=== PATIENT | male | born 1960 | race Caucasian/White ===

== ENCOUNTER 2024-03-18 07:54 | Inpatient (IN) | payer MEDICARE, MEDICAID ==
[~2024-03-18] VITALS: Ht 170.2 cm; Wt 66.3 kg
[2024-03-18 08:26] LABS: BASOPHILS % (AUTO) 0.9 % (0.0-2.0); EOSINOPHILS % (AUTO) 3.5 % (1.0-6.0); HEMATOCRIT 43.9 % (41-53); HEMOGLOBIN 15.2 g/dL (13.5-17.5); LYMPHOCYTES # (AUTO) 1.1 K/uL (1.0-4.8); LYMPHOCYTES % (AUTO) 13.6 % (22.0-44.0); MEAN CORPUSCULAR HEMOGLOBIN 29.5 pg (26.0-34.0); MEAN CORPUSCULAR HGB CONC 34.6 G/dL (31.0-37.0); MEAN CORPUSCULAR VOLUME 85 fL (80-100); MONOCYTES # (AUTO) 0.5 K/uL (0.1-1.0); NEUTROPHILS # (AUTO) 6.2 K/uL (1.8-7.7); PLATELET COUNT (AUTO) 197 K/uL (150-450); RED BLOOD CELL COUNT(AUTO) 5.15 MIL/uL (4.50-5.90); RED CELL DISTRIBUTION WIDTH 14.2 % (11.5-14.5); WHITE BLOOD COUNT (AUTO) 8.1 K/uL (4.5-11.0)
[2024-03-18 08:37] LABS: CREATININE 1.79 mg/dL (0.60-1.30); POTASSIUM 4.4 mmol/L (3.5-5.1)
[2024-03-18 08:38] LABS: APPEARANCE,URINE CLEAR (CLEAR); BILIRUBIN,URINE NEGATIVE (NEGATIVE); COLOR,URINE LIGHT YELLOW (YELLOW); GLUCOSE, URINE (UA) >=1000 mg/dL (NEGATIVE); LEUKOCYTE ESTERASE ,URINE NEGATIVE (NEGATIVE); NITRATE,URINE NEGATIVE (NEGATIVE); OCCULT BLOOD,URINE SMALL (NEGATIVE); PH,URINE 6.5 (5.0-8.0); PROTEIN,URINE 300-600,SEE CONFIRM mg/dL (NEGATIVE); UROBILINOGEN,URINE <=1.0 mg/dL (<=1.0)
[2024-03-18 08:45] LABS: ALCOHOL, URINE DRUG SCREEN NEGATIVE (NEGATIVE); AMPHET/METH SCREEN,URINE NEGATIVE (NEGATIVE); BARBITURATE SCREEN, URINE NEGATIVE (NEGATIVE); BENZODIAZEPINES SCREEN,URINE NEGATIVE (NEGATIVE); CANNABINOID SCREEN,URINE NEGATIVE (NEGATIVE); COCAINE SCREEN,URINE NEGATIVE (NEGATIVE); METHADONE SCREEN, URINE NEGATIVE (NEGATIVE); OPIATE SCREEN,URINE NEGATIVE (NEGATIVE); PHENCYCLIDINE SCREEN,URINE NEGATIVE (NEGATIVE)
[2024-03-18 08:46] LABS: TROPONIN I-HIGH SENSITIVITY 8 ng/L (<76)
[2024-03-18 08:47] LABS: COVID AG,FIA SOURCE NASAL SWAB
[2024-03-18 09:07] LABS: PH,URINE DRUG SCREEN 6.5 (5.0-8.0)
[2024-03-18 09:13] LABS: SARS-COV2 (COVID) ANTIGEN,FIA Negative (Negative)
[2024-03-18 09:27] LABS: BACTERIA,URINE None Seen /HPF (None Seen); SULFOSALICYLIC ACID,URINE 3+ (Negative); WBC,URINE None Seen /HPF (0-5)
[2024-03-18] MEDS ORDERED: LOSA-381 PO (14:19)
[2024-03-18] MEDS ORDERED: CARV6 PO (14:19)
[2024-03-18] MEDS ORDERED: SITA50 PO (14:19)
[2024-03-18] MEDS ORDERED: OMEP20 PO (14:19)
[2024-03-18] MEDS ORDERED: AMLO-258 PO (14:19)
[2024-03-18] MEDS ORDERED: ATOR40TA28 PO (14:19)
[2024-03-18 17:18] VITALS: BP 173/99; PULSE 81; RESP 18; TEMP 98; O2SAT 100
[2024-03-18] MEDS ORDERED: INFLUENZA VIRUS VACCINE TVS (6MO+) 2024-25/PF 45 MCG/0.5 ML SYRINGE IM. ONE (18:30)
[2024-03-18] MEDS: AmLODIPine BESYLATE 10 MG TABLET PO ONE (19:03)
[2024-03-18 21:47] VITALS: BP 120/78; PULSE 83; RESP 18; TEMP 97.1; O2SAT 99
[2024-03-18] MEDS: SitaGLIPtin PHOSPHATE 50 MG TABLET PO ONE (21:54)
[2024-03-18] MEDS: LOSARTAN POTASSIUM 25 MG TABLET PO ONE (21:55)
[2024-03-18] MEDS: ZOLPIDEM TARTRATE 10 MG TABLET PO PRN (21:55)
[2024-03-18] MEDS: CARVEDILOL 6.25 MG TABLET PO ONE (21:55)
[2024-03-18] MEDS: ATORVASTATIN CALCIUM 40 MG TABLET PO SCH (21:56)
[2024-03-19] MEDS ORDERED: PETROLATUM,WHITE 28 GM JELLY TP PRN (00:30)
[2024-03-19] MEDS ORDERED: ACETAMINOPHEN 325 MG TABLET PO PRN (00:30)
[2024-03-19] MEDS ORDERED: LOPERAMIDE HCL 2 MG CAPSULE PO PRN (00:30)
[2024-03-19] MEDS ORDERED: OMEPRAZOLE 20 MG CAPSULE PO PRN (00:30)
[2024-03-19] MEDS ORDERED: BACITRACIN 28 GM OINTMENT TP PRN (00:30)
[2024-03-19] MEDS ORDERED: CloNIDine HCL 0.1 MG TABLET PO PRN (00:30)
[2024-03-19] MEDS ORDERED: IBUPROFEN 600 MG TABLET PO PRN (00:30)
[2024-03-19] MEDS ORDERED: ALBUTEROL SULFATE HFA 90 MCG/PUFF 8 GM INHALER IH PRN (00:30)
[2024-03-19] MEDS ORDERED: DOCUSATE SODIUM 100 MG CAPSULE PO PRN (00:30)
[2024-03-19] MEDS ORDERED: ONDANSETRON 4 MG TABLET PO PRN (00:30)
[2024-03-19] MEDS ORDERED: MAG HYDROX/ALUMINUM HYD/SIMETH ES 30 ML SUSPENSION UDCUP PO PRN (00:30)
[2024-03-19] MEDS ORDERED: BENZOCAINE/MENTHOL LOZENGE PO PRN (00:30)
[2024-03-19] MEDS ORDERED: DEXTROSE 50%-WATER 25 GM/50 ML SYRINGE IVP PRN (00:30)
[2024-03-19] MEDS ORDERED: MAGNESIUM HYDROXIDE SUSPENSION 30 ML UDCUP PO PRN (00:30)
[2024-03-19 07:01] LABS: GLUCOMETER DEV NAME(LOC) 3E.I 2; GLUCOSE,POINT OF CARE 278 MG/DL (70-110)
[2024-03-19 07:41] LABS: CHOL/HDL RATIO 3.2 (4.2-7.3)
[2024-03-19 08:30] VITALS: BP 157/77; PULSE 66; RESP 18; TEMP 97.5; O2SAT 99
[2024-03-19] MEDS ORDERED: SitaGLIPtin PHOSPHATE 50 MG TABLET PO SCH (09:00)
[2024-03-19] MEDS: CARVEDILOL 6.25 MG TABLET PO SCH (11:55)
[2024-03-19] MEDS: SitaGLIPtin PHOSPHATE 50 MG TABLET PO SCH (11:55)
[2024-03-19] MEDS: LOSARTAN POTASSIUM 25 MG TABLET PO SCH (11:56)
[2024-03-19] MEDS: AmLODIPine BESYLATE 10 MG TABLET PO SCH (11:57)
[2024-03-19] MEDS: CITALOPRAM HYDROBROMIDE 20 MG TABLET PO SCH (11:57)
[2024-03-19 17:01] LABS: GLUCOMETER DEV NAME(LOC) 3E.I 2; GLUCOSE,POINT OF CARE 429 MG/DL (70-110)
[2024-03-19] MEDS: INSULIN LISPRO 100 UNITS/ML SQ PRN ×2 (17:40→18:18)
[2024-03-19] MEDS: INSULIN GLARGINE,HUM.REC.ANLOG 100 UNITS/ML SQ SCH (21:29)
[2024-03-19] MEDS: LORazepam 2 MG TABLET PO PRN (21:29)
[2024-03-19] MEDS: HALOPERIDOL 5 MG TABLET PO PRN (21:29)
[2024-03-19 21:31] LABS: GLUCOMETER DEV NAME(LOC) 3E.I 2; GLUCOSE,POINT OF CARE 211 MG/DL (70-110)
[2024-03-19 22:14] VITALS: BP 124/72; PULSE 73; RESP 18; TEMP 97.8; O2SAT 98
[2024-03-20 06:36] LABS: GLUCOMETER DEV NAME(LOC) 3E.I 2; GLUCOSE,POINT OF CARE 132 MG/DL (70-110)
[2024-03-20 06:37] LABS: CALCIUM, TOTAL 8.4 mg/dL (8.8-10.5); CREATININE 2.53 mg/dL (0.60-1.30); POTASSIUM 4.2 mmol/L (3.5-5.1)
[2024-03-20] MEDS: ASPIRIN 81 MG DR TABLET PO SCH (09:01)
[2024-03-20 10:20] VITALS: BP 168/84; PULSE 73; RESP 18; TEMP 98.2; O2SAT 100
[2024-03-20 11:45] LABS: GLUCOMETER DEV NAME(LOC) 3E.I 2; GLUCOSE,POINT OF CARE 327 MG/DL (70-110)
[2024-03-20 17:01] LABS: GLUCOMETER DEV NAME(LOC) 3E.I 2; GLUCOSE,POINT OF CARE 222 MG/DL (70-110)
[2024-03-20 20:16] LABS: GLUCOMETER DEV NAME(LOC) 3E.I 2; GLUCOSE,POINT OF CARE 290 MG/DL (70-110)
[2024-03-20 22:27] VITALS: BP 133/56; PULSE 77; RESP 18; TEMP 98.5; O2SAT 99
[2024-03-21 05:41] LABS: GLUCOMETER DEV NAME(LOC) 3E.I 2; GLUCOSE,POINT OF CARE 246 MG/DL (70-110)
[2024-03-21 08:53] VITALS: BP 154/82; PULSE 74; RESP 17; TEMP 97; O2SAT 96
[2024-03-21 11:36] LABS: GLUCOMETER DEV NAME(LOC) 3E.I 2; GLUCOSE,POINT OF CARE 330 MG/DL (70-110)
[2024-03-21 17:21] LABS: GLUCOMETER DEV NAME(LOC) 3E.I 2; GLUCOSE,POINT OF CARE 207 MG/DL (70-110)
[2024-03-21 20:39] VITALS: BP 149/84; PULSE 70; RESP 19; TEMP 97.5; O2SAT 95
[2024-03-21 22:46] LABS: GLUCOMETER DEV NAME(LOC) 3EX.2; GLUCOSE,POINT OF CARE 243 MG/DL (70-110)
[2024-03-22 05:56] LABS: GLUCOMETER DEV NAME(LOC) 3E.I 2; GLUCOSE,POINT OF CARE 157 MG/DL (70-110)
[2024-03-22 08:58] VITALS: BP 152/78; PULSE 70; RESP 18; TEMP 97.7; O2SAT 99
[2024-03-22 11:36] LABS: GLUCOMETER DEV NAME(LOC) 3E.I 2; GLUCOSE,POINT OF CARE 407 MG/DL (70-110)
[2024-03-22 13:41] LABS: GLUCOMETER DEV NAME(LOC) 3E.I 2; GLUCOSE,POINT OF CARE 276 MG/DL (70-110)
[2024-03-22 16:35] LABS: GLUCOMETER DEV NAME(LOC) 3E.I 2; GLUCOSE,POINT OF CARE 298 MG/DL (70-110)
[2024-03-22 20:00] VITALS: BP 170/81; PULSE 73; RESP 18; TEMP 97.9; O2SAT 97
[2024-03-22 21:06] LABS: GLUCOMETER DEV NAME(LOC) 3E.I 2; GLUCOSE,POINT OF CARE 304 MG/DL (70-110)
[2024-03-22] MEDS: INSULIN GLARGINE,HUM.REC.ANLOG 100 UNITS/ML SQ SCH (21:50)
[2024-03-23 06:11] LABS: GLUCOMETER DEV NAME(LOC) 3E.I 2; GLUCOSE,POINT OF CARE 222 MG/DL (70-110)
[2024-03-23 10:02] VITALS: BP 161/80; PULSE 68; RESP 18; TEMP 98.4; O2SAT 98
[2024-03-23 11:36] LABS: GLUCOMETER DEV NAME(LOC) 3E.I 2; GLUCOSE,POINT OF CARE 268 MG/DL (70-110)
[2024-03-23] MEDS ORDERED: CITA-144 PO (11:45)
[2024-03-23] MEDS ORDERED: CARV6 PO (12:04)
[2024-03-23] MEDS ORDERED: ASPI-1444 PO (12:04)
[2024-03-23] MEDS ORDERED: INSLAN SQ (12:04)
[2024-03-23] MEDS ORDERED: ATOR40TA28 PO (12:04)
== END 2024-03-23 18:27 | disposition home or self-care (01) | DRG 881 ==
LOC: EMS 07:54 → 3EI 16:08
PROVIDERS: ADMIT Psychiatry & Neurology Psychiatry; ATTEND Psychiatry & Neurology Psychiatry
DX: F32.9 Major depressive disorder, single episode, unspecified (principal); N18.9 Chronic kidney disease, unspecified; E11.65 Type 2 diabetes mellitus with hyperglycemia; R45.851 Suicidal ideations; Z59.02 Unsheltered homelessness; Z20.822 Contact with and (suspected) exposure to COVID-19; I12.9 Hypertensive chronic kidney disease with stage 1 through stage 4 chronic kidney disease, or unspecified chronic kidney disease; E11.22 Type 2 diabetes mellitus with diabetic chronic kidney disease; G47.00 Insomnia, unspecified; F41.9 Anxiety disorder, unspecified; K59.00 Constipation, unspecified; R07.9 Chest pain, unspecified; E78.5 Hyperlipidemia, unspecified; I25.10 Atherosclerotic heart disease of native coronary artery without angina pectoris; G89.29 Other chronic pain; Z95.5 Presence of coronary angioplasty implant and graft; I25.2 Old myocardial infarction
CPT/HCPCS: 71045; 80048; 80061; 80307; 81001; 81002; 82962; 83036; 83690; 84484; 85025; 93005; 99285; G0480; J1815; 36415-L1; 36415-TC

== ENCOUNTER 2024-03-24 11:32 | Inpatient (IN) | payer OTHER ==
[~2024-03-24] VITALS: Ht 170.2 cm; Wt 71.1 kg
[~2024-03-24 11:32] MED LIST: AMLO-258 PO; ASPI-1444 PO; ATOR40TA28 PO; CARV6 PO; CITA-144 PO; INSLAN SQ; LOSA-381 PO; SITA50 PO
[2024-03-24 11:56] LABS: GLUCOMETER DEV NAME(LOC) ER.7; GLUCOSE,POINT OF CARE 212 MG/DL (70-110)
[2024-03-24 12:23] LABS: EOSINOPHILS % (AUTO) 3.8 % (1.0-6.0); HEMOGLOBIN 14.2 g/dL (13.5-17.5); LYMPHOCYTES % (AUTO) 11.4 % (22.0-44.0); MEAN CORPUSCULAR HGB CONC 33.8 G/dL (31.0-37.0); MEAN CORPUSCULAR VOLUME 86 fL (80-100); MONOCYTES # (AUTO) 0.5 K/uL (0.1-1.0); MONOCYTES % (AUTO) 5.6 % (2.0-9.0); NEUTROPHILS # (AUTO) 6.9 K/uL (1.8-7.7); NEUTROPHILS % (AUTO) 78.2 % (40.0-70.0); PLATELET COUNT (AUTO) 218 K/uL (150-450); RED CELL DISTRIBUTION WIDTH 14.3 % (11.5-14.5); WHITE BLOOD COUNT (AUTO) 8.9 K/uL (4.5-11.0)
[2024-03-24 12:33] LABS: CREATININE 2.03 mg/dL (0.60-1.30)
[2024-03-24 12:36] LABS: POTASSIUM 6.1 mmol/L (3.5-5.1)
[2024-03-24 12:41] LABS: TROPONIN I-HIGH SENSITIVITY 5 ng/L (<76)
[2024-03-24] MEDS: DEXTROSE 50%-WATER 25 GM/50 ML SYRINGE IVP ONE (13:05)
[2024-03-24] MEDS: SODIUM CHLORIDE 0.9% 1,000 ML IV ONE (13:05)
[2024-03-24] MEDS: INSULIN REGULAR, HUMAN 100 UNITS/ML IVP ONE (13:06)
[2024-03-24] MEDS: HEPARIN SODIUM,PORCINE 5,000 UNITS/ML VIAL SQ SCH (15:12)
[2024-03-24] MEDS ORDERED: BISACODYL 10 MG RECTAL RECTAL SUPPOSITORY PR PRN (15:15)
[2024-03-24] MEDS ORDERED: ONDANSETRON HCL 4 MG/2 ML VIAL IVP PRN (15:15)
[2024-03-24] MEDS ORDERED: MORPHINE SULFATE 2 MG/ML SYRINGE IVP PRN (15:15)
[2024-03-24] MEDS ORDERED: ZOLPIDEM TARTRATE 5 MG TABLET PO PRN (15:15)
[2024-03-24] MEDS ORDERED: MAGNESIUM HYDROXIDE SUSPENSION 30 ML UDCUP PO PRN (15:15)
[2024-03-24 15:43] LABS: TROPONIN I-HIGH SENSITIVITY 7 ng/L (<76)
[2024-03-24 18:12] VITALS: BP 162/75; PULSE 69; RESP 20; TEMP 98.1; O2SAT 98
[2024-03-24] MEDS: DOCUSATE SODIUM 100 MG CAPSULE PO SCH (20:28)
[2024-03-24 20:29] VITALS: BP 160/76; PULSE 69; RESP 18; TEMP 98.2; O2SAT 97
[2024-03-24] MEDS ORDERED: DEXTROSE 50%-WATER 25 GM/50 ML SYRINGE IVP PRN (20:30)
[2024-03-24] MEDS: INSULIN GLARGINE,HUM.REC.ANLOG 100 UNITS/ML SQ SCH (20:31)
[2024-03-24] MEDS: ATORVASTATIN CALCIUM 40 MG TABLET PO SCH (20:33)
[2024-03-24] MEDS: INSULIN LISPRO 100 UNITS/ML SQ PRN (21:36)
[2024-03-25] VITALS (16 sets, daily range): BP systolic 122–202; BP diastolic 62–96; PULSE 63–73; RESP 14–18; TEMP 97.8–98.5; O2SAT 73–99
[2024-03-25 06:58] LABS: BASOPHILS % (AUTO) 0.7 % (0.0-2.0); EOSINOPHILS % (AUTO) 4.2 % (1.0-6.0); HEMATOCRIT 35.7 % (41-53); HEMOGLOBIN 12.6 g/dL (13.5-17.5); LYMPHOCYTES # (AUTO) 1.1 K/uL (1.0-4.8); LYMPHOCYTES % (AUTO) 11.7 % (22.0-44.0); MEAN CORPUSCULAR HEMOGLOBIN 29.6 pg (26.0-34.0); MEAN CORPUSCULAR HGB CONC 35.2 G/dL (31.0-37.0); MEAN CORPUSCULAR VOLUME 84 fL (80-100); MONOCYTES # (AUTO) 0.7 K/uL (0.1-1.0); MONOCYTES % (AUTO) 7.4 % (2.0-9.0); NEUTROPHILS # (AUTO) 7.4 K/uL (1.8-7.7); PLATELET COUNT (AUTO) 185 K/uL (150-450); RED BLOOD CELL COUNT(AUTO) 4.25 MIL/uL (4.50-5.90); RED CELL DISTRIBUTION WIDTH 13.9 % (11.5-14.5); WHITE BLOOD COUNT (AUTO) 9.8 K/uL (4.5-11.0)
[2024-03-25 07:01] LABS: GLUCOMETER DEV NAME(LOC) 5S.2D; GLUCOSE,POINT OF CARE 412 MG/DL (70-110)
[2024-03-25 07:01] LABS: GLUCOMETER DEV NAME(LOC) 5S.2D; GLUCOSE,POINT OF CARE 130 MG/DL (70-110)
[2024-03-25 07:01] LABS: GLUCOMETER DEV NAME(LOC) 5S.2D; GLUCOSE,POINT OF CARE 437 MG/DL (70-110)
[2024-03-25 07:19] LABS: TROPONIN I-HIGH SENSITIVITY 8 ng/L (<76)
[2024-03-25 08:06] LABS: CALCIUM, TOTAL 8.6 mg/dL (8.8-10.5); CREATININE 1.94 mg/dL (0.60-1.30); POTASSIUM 4.1 mmol/L (3.5-5.1)
[2024-03-25] MEDS ORDERED: NITROGLYCERIN 0.4 MG SUBLINGUAL TABLET #25 SL PRN (08:30)
[2024-03-25] MEDS: SitaGLIPtin PHOSPHATE 50 MG TABLET PO SCH (08:41)
[2024-03-25] MEDS: PANTOPRAZOLE SODIUM 40 MG DR TABLET PO SCH (08:41)
[2024-03-25] MEDS: CARVEDILOL 6.25 MG TABLET PO SCH (08:41)
[2024-03-25] MEDS: ASPIRIN 81 MG DR TABLET PO SCH (08:42)
[2024-03-25] MEDS: AmLODIPine BESYLATE 10 MG TABLET PO SCH (08:42)
[2024-03-25] MEDS: SODIUM CHLORIDE 0.9% 1,000 ML IV SCH ×2 (08:52→09:16)
[2024-03-25 12:36] LABS: GLUCOMETER DEV NAME(LOC) 5S.1C; GLUCOSE,POINT OF CARE 231 MG/DL (70-110)
[2024-03-25] MEDS ORDERED: LIDOCAINE/PF 1% 30 ML VIAL ONE (14:02)
[2024-03-25] MEDS ORDERED: VERAPAMIL HCL 2.5 MG/ML 2 ML VIAL ONE (14:02)
[2024-03-25] MEDS ORDERED: IOHEXOL 300 MG/ML 100 ML VIAL ONE (14:02)
[2024-03-25] MEDS ORDERED: NITROGLYCERIN 50 MG/D5% WATER 250 ML ONE (14:02)
[2024-03-25] MEDS ORDERED: SODIUM BICARBONATE 50 MEQ/50 ML VIAL ONE (14:02)
[2024-03-25] MEDS ORDERED: HEPARIN SODIUM 1000 UNITS/NS 1,000 ML ONE (14:02)
[2024-03-25 14:27] LABS: CALCIUM, TOTAL 8.4 mg/dL (8.8-10.5); CREATININE 1.77 mg/dL (0.60-1.30); POTASSIUM 4.3 mmol/L (3.5-5.1)
[2024-03-25] MEDS ORDERED: FentaNYL CITRATE PF 100 MCG/2 ML VIAL ONE (15:04)
[2024-03-25] MEDS ORDERED: MIDAZOLAM HCL 2 MG/2 ML VIAL ONE (15:05)
[2024-03-25] MEDS: LIDOCAINE 1% 30 ML/SOD BICARB 8.4% 4 ML SQ ONE (15:33)
[2024-03-25] MEDS: HEPARIN SODIUM,PORCINE 1,000 UNITS/ML 10 ML VIAL IARTER ONE (15:33)
[2024-03-25] MEDS: VERAPAMIL HCL 2.5 MG/ML 2 ML VIAL IARTER ONE (15:33)
[2024-03-25] MEDS: HEPARIN SODIUM 1000 UNITS/NS 1,000 ML IARTER ONE (15:34)
[2024-03-25] MEDS: IOHEXOL 300 MG/ML 100 ML VIAL IARTER ONE (15:34)
[2024-03-25] MEDS: NITROGLYCERIN/D5W 50 MG/250 ML IV BOTTLE IARTER ONE (15:35)
[2024-03-25] MEDS: FentaNYL CITRATE PF 100 MCG/2 ML VIAL IVP ONE (15:35)
[2024-03-25] MEDS: MIDAZOLAM HCL 2 MG/2 ML VIAL IVP ONE (15:35)
[2024-03-25] MEDS: SODIUM CHLORIDE 0.9% 500 ML IV ONE (15:38)
[2024-03-25] MEDS: HydrALAZINE HCL 20 MG/ML VIAL IVP ONE (19:31)
[2024-03-25 20:25] LABS: GLUCOMETER DEV NAME(LOC) 5N.2C; GLUCOSE,POINT OF CARE 157 MG/DL (70-110)
[2024-03-25 20:51] LABS: GLUCOMETER DEV NAME(LOC) 5S.1C; GLUCOSE,POINT OF CARE 302 MG/DL (70-110)
[2024-03-25 21:42] LABS: APPEARANCE,URINE CLEAR (CLEAR); BILIRUBIN,URINE NEGATIVE (NEGATIVE); COLOR,URINE LIGHT YELLOW (YELLOW); GLUCOSE, URINE (UA) 300-500 mg/dL (NEGATIVE); KETONES,URINE NEGATIVE (NEGATIVE); LEUKOCYTE ESTERASE ,URINE NEGATIVE (NEGATIVE); NITRATE,URINE NEGATIVE (NEGATIVE); OCCULT BLOOD,URINE NEGATIVE (NEGATIVE); PH,URINE 6.5 (5.0-8.0); PROTEIN,URINE 100-200,SEE CONFIRM mg/dL (NEGATIVE); SPECIFIC GRAVITIY, URINE 1.017 (1.003-1.030); UROBILINOGEN,URINE <=1.0 mg/dL (<=1.0)
[2024-03-25 21:46] LABS: CREATININE,URINE RANDOM 47.4 mg/dL (30.0-125.0); PROTEIN,URINE RANDOM 180 mg/dL (0-11.9); SODIUM,URINE RANDOM 106 mmol/l (20-110); UREA NITROGEN,URINE RANDOM 385 mg/dL (350-1000)
[2024-03-25 22:09] LABS: RBC,URINE 0-2 /HPF (0-2); WBC,URINE None Seen /HPF (0-5)
[2024-03-25 22:11] LABS: BACTERIA,URINE None Seen /HPF (None Seen); SULFOSALICYLIC ACID,URINE 3+ (Negative)
[2024-03-26 04:30] VITALS: BP 128/60; PULSE 64; RESP 18; TEMP 98.9; O2SAT 98
[2024-03-26 06:57] LABS: TROPONIN I-HIGH SENSITIVITY 14 ng/L (<76)
[2024-03-26 06:59] LABS: BASOPHILS % (AUTO) 0.9 % (0.0-2.0); EOSINOPHILS % (AUTO) 8.3 % (1.0-6.0); HEMATOCRIT 36.5 % (41-53); HEMOGLOBIN 12.3 g/dL (13.5-17.5); LYMPHOCYTES # (AUTO) 1.2 K/uL (1.0-4.8); LYMPHOCYTES % (AUTO) 18.9 % (22.0-44.0); MEAN CORPUSCULAR HEMOGLOBIN 28.8 pg (26.0-34.0); MEAN CORPUSCULAR HGB CONC 33.7 G/dL (31.0-37.0); MEAN CORPUSCULAR VOLUME 86 fL (80-100); MONOCYTES # (AUTO) 0.5 K/uL (0.1-1.0); MONOCYTES % (AUTO) 8.1 % (2.0-9.0); NEUTROPHILS # (AUTO) 4.1 K/uL (1.8-7.7); NEUTROPHILS % (AUTO) 63.8 % (40.0-70.0); PLATELET COUNT (AUTO) 189 K/uL (150-450); RED BLOOD CELL COUNT(AUTO) 4.27 MIL/uL (4.50-5.90); RED CELL DISTRIBUTION WIDTH 13.8 % (11.5-14.5); WHITE BLOOD COUNT (AUTO) 6.4 K/uL (4.5-11.0)
[2024-03-26 07:01] LABS: ALBUMIN 2.8 g/dL (3.4-5.0); BILIRUBIN,TOTAL 0.4 mg/dL (0.1-1.0); CALCIUM, TOTAL 8.2 mg/dL (8.8-10.5); CHOL/HDL RATIO 2.6 (4.2-7.3); CREATININE 1.54 mg/dL (0.60-1.30); POTASSIUM 4.3 mmol/L (3.5-5.1); TOTAL PROTEIN, SERUM 6.1 g/dL (6.4-8.2)
[2024-03-26 07:16] LABS: HEMOGLOBIN A1C 12.5 % (3.8-5.6)
[2024-03-26 07:29] VITALS: BP 150/74; PULSE 67; RESP 17; TEMP 97.5; O2SAT 97
[2024-03-26 11:25] LABS: GLUCOMETER DEV NAME(LOC) 5S.2D; GLUCOSE,POINT OF CARE 233 MG/DL (70-110)
[2024-03-26 11:37] VITALS: BP 151/77; PULSE 70; RESP 17; TEMP 98.4; O2SAT 97
[2024-03-26 11:50] LABS: GLUCOMETER DEV NAME(LOC) 5S.1C; GLUCOSE,POINT OF CARE 130 MG/DL (70-110)
[2024-03-26 16:00] VITALS: BP 147/68; PULSE 63; RESP 17; TEMP 98.2; O2SAT 95
[2024-03-26 17:00] LABS: GLUCOMETER DEV NAME(LOC) 5N.1D; GLUCOSE,POINT OF CARE 222 MG/DL (70-110)
[2024-03-26 20:00] VITALS: BP 158/80; PULSE 70; RESP 18; TEMP 98.2; O2SAT 97
[2024-03-27] VITALS: BP 155/82; PULSE 68; RESP 18; TEMP 97.9; O2SAT 95
[2024-03-27 04:00] VITALS: BP 152/80; PULSE 60; RESP 18; TEMP 98.1; O2SAT 98
[2024-03-27 06:35] LABS: GLUCOMETER DEV NAME(LOC) 5S.1C; GLUCOSE,POINT OF CARE 116 MG/DL (70-110)
[2024-03-27 07:04] LABS: BASOPHILS % (AUTO) 1.1 % (0.0-2.0); EOSINOPHILS % (AUTO) 8.8 % (1.0-6.0); HEMATOCRIT 34.1 % (41-53); HEMOGLOBIN 11.9 g/dL (13.5-17.5); LYMPHOCYTES # (AUTO) 1.7 K/uL (1.0-4.8); LYMPHOCYTES % (AUTO) 26.3 % (22.0-44.0); MEAN CORPUSCULAR HEMOGLOBIN 29.5 pg (26.0-34.0); MEAN CORPUSCULAR HGB CONC 34.9 G/dL (31.0-37.0); MEAN CORPUSCULAR VOLUME 85 fL (80-100); MONOCYTES # (AUTO) 0.6 K/uL (0.1-1.0); MONOCYTES % (AUTO) 8.8 % (2.0-9.0); NEUTROPHILS # (AUTO) 3.6 K/uL (1.8-7.7); PLATELET COUNT (AUTO) 158 K/uL (150-450); RED BLOOD CELL COUNT(AUTO) 4.04 MIL/uL (4.50-5.90); RED CELL DISTRIBUTION WIDTH 13.9 % (11.5-14.5); WHITE BLOOD COUNT (AUTO) 6.5 K/uL (4.5-11.0)
[2024-03-27 07:13] LABS: CALCIUM, TOTAL 8.2 mg/dL (8.8-10.5); CREATININE 1.77 mg/dL (0.60-1.30); MAGNESIUM 1.7 mg/dL (1.80-2.40); PHOSPHORUS 4.1 mg/dL (2.5-4.9); POTASSIUM 4.4 mmol/L (3.5-5.1)
[2024-03-27 08:21] VITALS: BP 160/73; PULSE 62; RESP 19; TEMP 98; O2SAT 97
[2024-03-27] MEDS ORDERED: SITA50 PO (10:35)
[2024-03-27] MEDS ORDERED: AMLO-258 PO (10:35)
[2024-03-27] MEDS ORDERED: ATOR40TA71 PO (10:35)
[2024-03-27] MEDS ORDERED: CARV6 PO (10:35)
[2024-03-27] MEDS ORDERED: ASPI-1444 PO (10:35)
[2024-03-27] MEDS ORDERED: INSLAN SQ (10:35)
[2024-03-27 12:14] VITALS: BP 161/79; PULSE 63; RESP 18; TEMP 98.3; O2SAT 96
[2024-03-27 15:41] VITALS: BP 133/69; PULSE 62; RESP 18; TEMP 98; O2SAT 99
[2024-03-27 18:16] LABS: GLUCOMETER DEV NAME(LOC) 5N.2C; GLUCOSE,POINT OF CARE 218 MG/DL (70-110)
[2024-03-27 20:21] VITALS: BP 159/81; PULSE 62; RESP 18; TEMP 98.1; O2SAT 97
[2024-03-28 02:00] VITALS: BP 154/80; PULSE 61; RESP 18; TEMP 98.1; O2SAT 94
[2024-03-28 05:00] VITALS: BP 166/76; PULSE 62; RESP 19; TEMP 97.8; O2SAT 96
[2024-03-28] MEDS: HYDROCODONE/ACETAMINOPHEN 5-325 MG TABLET PO PRN (05:16)
[2024-03-28] MEDS: HydrALAZINE HCL 20 MG/ML VIAL IVP PRN (05:16)
[2024-03-28 08:00] VITALS: BP 147/69; PULSE 69; RESP 18; TEMP 97.9; O2SAT 97
[2024-03-28 12:10] VITALS: BP 130/70; PULSE 60; RESP 17; TEMP 98.1; O2SAT 97
[2024-03-28 13:16] LABS: CALCIUM, TOTAL 8.4 mg/dL (8.8-10.5); CREATININE 1.87 mg/dL (0.60-1.30); POTASSIUM 4.4 mmol/L (3.5-5.1)
[2024-03-28 16:00] VITALS: BP 132/67; PULSE 65; RESP 17; TEMP 98.6; O2SAT 95
[2024-03-28 17:21] LABS: GLUCOMETER DEV NAME(LOC) 5S.1C; GLUCOSE,POINT OF CARE 101 MG/DL (70-110)
[2024-03-28 17:21] LABS: GLUCOMETER DEV NAME(LOC) 5S.1C; GLUCOSE,POINT OF CARE 266 MG/DL (70-110)
[2024-03-28 17:21] LABS: GLUCOMETER DEV NAME(LOC) 5S.1C; GLUCOSE,POINT OF CARE 140 MG/DL (70-110)
[2024-03-28 20:04] VITALS: BP 147/78; PULSE 67; RESP 20; TEMP 98; O2SAT 98
[2024-03-28 21:56] LABS: GLUCOMETER DEV NAME(LOC) 5S.1C; GLUCOSE,POINT OF CARE 171 MG/DL (70-110)
[2024-03-29 05:17] VITALS: BP 169/87; PULSE 69; RESP 20; TEMP 97.9; O2SAT 95
[2024-03-29 07:15] LABS: GLUCOMETER DEV NAME(LOC) 4E.2; GLUCOSE,POINT OF CARE 116 MG/DL (70-110)
[2024-03-29 07:34] VITALS: BP 129/60; PULSE 72; RESP 20; TEMP 98.4; O2SAT 97
[2024-03-29 11:31] LABS: GLUCOMETER DEV NAME(LOC) 6N.2B; GLUCOSE,POINT OF CARE 261 MG/DL (70-110)
[2024-03-29 15:04] LABS: CALCIUM, TOTAL 8.3 mg/dL (8.8-10.5); CREATININE 1.92 mg/dL (0.60-1.30)
[2024-03-29 15:48] VITALS: BP 143/75; PULSE 68; RESP 20; TEMP 98.3; O2SAT 97
[2024-03-29 19:22] VITALS: BP 144/69; PULSE 78; RESP 20; TEMP 98.3; O2SAT 97
[2024-03-29 20:05] LABS: GLUCOMETER DEV NAME(LOC) 4E.2; GLUCOSE,POINT OF CARE 292 MG/DL (70-110)
[2024-03-29 20:11] LABS: GLUCOMETER DEV NAME(LOC) 6N.2B; GLUCOSE,POINT OF CARE 209 MG/DL (70-110)
[2024-03-29 21:40] LABS: GLUCOMETER DEV NAME(LOC) 4E.2; GLUCOSE,POINT OF CARE 289 MG/DL (70-110)
[2024-03-29 23:16] LABS: GLUCOMETER DEV NAME(LOC) 5N.1D; GLUCOSE,POINT OF CARE 395 MG/DL (70-110)
[2024-03-30 04:53] VITALS: BP 148/72; PULSE 68; RESP 18; TEMP 98.4; O2SAT 96
[2024-03-30] MEDS: ACETAMINOPHEN 325 MG TABLET PO PRN (05:41)
[2024-03-30 08:19] VITALS: BP 181/86; PULSE 71; RESP 18; TEMP 98.1; O2SAT 93
[2024-03-30] MEDS ORDERED: CARV6 PO (10:14)
[2024-03-30] MEDS: LABETALOL HCL 5 MG/ML 20 ML VIAL IVP ONE (10:22)
[2024-03-30 12:39] VITALS: O2SAT 96
[2024-03-30 12:41] LABS: GLUCOMETER DEV NAME(LOC) 6N.2B; GLUCOSE,POINT OF CARE 320 MG/DL (70-110)
[2024-03-30 12:41] LABS: GLUCOMETER DEV NAME(LOC) 6N.2B; GLUCOSE,POINT OF CARE 283 MG/DL (70-110)
[2024-03-30 16:21] VITALS: BP 153/77; PULSE 70; RESP 19; TEMP 98.3; O2SAT 96
[2024-03-30 19:39] VITALS: BP 157/77; PULSE 67; RESP 19; TEMP 98.5; O2SAT 97
[2024-03-30] MEDS: CARVEDILOL 6.25 MG TABLET PO SCH (21:02)
[2024-03-30 21:45] LABS: GLUCOMETER DEV NAME(LOC) 6N.2B; GLUCOSE,POINT OF CARE 242 MG/DL (70-110)
[2024-03-30 21:46] LABS: GLUCOMETER DEV NAME(LOC) 6N.2B; GLUCOSE,POINT OF CARE 174 MG/DL (70-110)
[2024-03-31 04:19] VITALS: BP 157/81; PULSE 68; RESP 18; TEMP 98.1; O2SAT 96
[2024-03-31 08:06] VITALS: BP 143/67; PULSE 59; RESP 18; TEMP 98.1; O2SAT 97
[2024-03-31 13:56] LABS: GLUCOMETER DEV NAME(LOC) 4E.2; GLUCOSE,POINT OF CARE 351 MG/DL (70-110)
[2024-03-31 13:56] LABS: GLUCOMETER DEV NAME(LOC) 4E.2; GLUCOSE,POINT OF CARE 171 MG/DL (70-110)
[2024-03-31 15:45] VITALS: BP 135/68; PULSE 67; RESP 18; TEMP 98.4; O2SAT 98
[2024-03-31] MEDS: INSULIN GLARGINE,HUM.REC.ANLOG 100 UNITS/ML SQ SCH (21:17)
[2024-04-01 06:21] LABS: GLUCOMETER DEV NAME(LOC) 6N.2B; GLUCOSE,POINT OF CARE 311 MG/DL (70-110)
[2024-04-01 06:26] LABS: GLUCOMETER DEV NAME(LOC) 4E.2; GLUCOSE,POINT OF CARE 157 MG/DL (70-110)
[2024-04-01 06:27] VITALS: BP 156/77; PULSE 62; RESP 19; TEMP 97.6; O2SAT 97
[2024-04-01 07:20] LABS: GLUCOMETER DEV NAME(LOC) 6N.2B; GLUCOSE,POINT OF CARE 147 MG/DL (70-110)
[2024-04-01] MEDS ORDERED: INSLAN SQ (12:51)
[2024-04-01 22:16] LABS: GLUCOMETER DEV NAME(LOC) 4E.2; GLUCOSE,POINT OF CARE 247 MG/DL (70-110)
== END 2024-04-01 16:36 | disposition home or self-care (01) | DRG 286 ==
LOC: EMS 11:32 → EDH 15:06 → 5S 18:05 → 4E 03-28 18:49
PROVIDERS: ADMIT Internal Medicine; ATTEND Internal Medicine
PROC: 4A023N7 Measurement of Cardiac Sampling and Pressure, Left Heart, Percutaneous Approach (ICD-10-PCS; principal; 2024-03-25)
PROC: B2111ZZ Fluoroscopy of Multiple Coronary Arteries using Low Osmolar Contrast (ICD-10-PCS; 2024-03-25)
DX: T82.855A Stenosis of coronary artery stent, initial encounter (principal); E11.00 Type 2 diabetes mellitus with hyperosmolarity without nonketotic hyperglycemic-hyperosmolar coma (NKHHC); N17.0 Acute kidney failure with tubular necrosis; I25.110 Atherosclerotic heart disease of native coronary artery with unstable angina pectoris; Z59.02 Unsheltered homelessness; E87.6 Hypokalemia; E78.5 Hyperlipidemia, unspecified; I12.9 Hypertensive chronic kidney disease with stage 1 through stage 4 chronic kidney disease, or unspecified chronic kidney disease; E11.22 Type 2 diabetes mellitus with diabetic chronic kidney disease; E11.319 Type 2 diabetes mellitus with unspecified diabetic retinopathy without macular edema; E87.5 Hyperkalemia; N18.31 Chronic kidney disease, stage 3a; D64.9 Anemia, unspecified; Y83.1 Surgical operation with implant of artificial internal device as the cause of abnormal reaction of the patient, or of later complication, without mention of misadventure at the time of the procedure; K59.00 Constipation, unspecified; Y92.89 Other specified places as the place of occurrence of the external cause; Z79.899 Other long term (current) drug therapy
CPT/HCPCS: 71045; 76770; 80048; 80053; 80061; 81001; 81002; 82570; 82962; 83036; 83735; 83880; 84100; 84132; 84156; 84300; 84484; 84540; 85025; 93005; 93306; 99285; G0378; J0360; J1644; J1815; J2250; J3010; J3490; J7030; Q9967; 36415-L1; 36415-TC; Z7610

== ENCOUNTER 2025-05-14 10:35 | Emergency (ER) | payer OTHER ==
[~2025-05-14] VITALS: Ht 170.2 cm; Wt 70.5 kg
[~2025-05-14 10:35] MED LIST changes: -ATOR40TA28 PO; +ATOR40TA71 PO; +CARV-165 PO; -CARV6 PO; -LOSA-381 PO
[2025-05-14 10:40] VITALS: BP 163/74; PULSE 67; RESP 18; TEMP 97.5; O2SAT 100
[2025-05-14 11:10] LABS: GLUCOMETER DEV NAME(LOC) ER.7; GLUCOSE,POINT OF CARE 147 MG/DL (70-110)
[2025-05-14] MEDS: PROPARACAINE HCL 0.5% 15 ML OPHTHALMIC SOLUTION OD ONE (13:02)
[2025-05-14] MEDS: ACETAMINOPHEN 500 MG TABLET PO ONE (13:03)
== END 2025-05-14 14:46 | disposition home or self-care (01) ==
LOC: EMS 10:35
DX: H40.9 Unspecified glaucoma (principal); E11.9 Type 2 diabetes mellitus without complications; I10 Essential (primary) hypertension; Z79.899 Other long term (current) drug therapy; Z79.82 Long term (current) use of aspirin; Z79.4 Long term (current) use of insulin; Z98.890 Other specified postprocedural states
CPT/HCPCS: 82962; 99173; 99283